=== PATIENT | female | born 1940 | race Caucasian/White ===

== ENCOUNTER 2017-08-13 08:50 | Emergency (ER) | payer OTHER ==
[~2017-08-13] VITALS: Ht 152.4 cm; Wt 56.2 kg
[~2017-08-13 08:50] MED LIST: VENTOLIN HFA18 GM
== END 2017-08-13 14:17 | disposition home or self-care (01) ==
LOC: ER 08:50
DX: J06.9 Acute upper respiratory infection, unspecified (principal); K80.20 Calculus of gallbladder without cholecystitis without obstruction; R16.1 Splenomegaly, not elsewhere classified; J32.8 Other chronic sinusitis; R10.12 Left upper quadrant pain